=== PATIENT | female | born 1935 | race Caucasian/White ===

== ENCOUNTER 2020-03-13 11:59 | Inpatient (IN) | payer MEDICARE, OTHER ==
[~2020-03-13] VITALS: Ht 152.4 cm; Wt 63.5 kg
--- NOTE | 2020-03-13 12:00 | NUR ---
BIB SON FROM CLINIC,C/O DIFFICULTY BREATHING. vs checked, hooken on monitor. satting well on ra. iv access started blood draw done sent to lab/. seen by
[2020-03-13] MEDS ORDERED: ASPIRIN 81 MG TAB.CHEW ONE ×2 (12:16→12:17)
[2020-03-13 12:17] LABS: BASOPHILS # (AUTO) 0.2 /CMM (0.0-0.2); BASOPHILS % (AUTO) 1.4 % (0.0-2.0); EOSINOPHILS % (AUTO) 1.1 % (0.0-6.0); HEMATOCRIT 40 % (33-45); HEMOGLOBIN 12.7 g/dL (11.5-14.8); LYMPHOCYTES # (AUTO) 1.2 /CMM (0.8-4.8); LYMPHOCYTES % (AUTO) 9.5 % (20.0-44.0); MEAN CORPUSCULAR HGB CONC 32 g/dl (31.0-36.0); MEAN CORPUSCULAR VOLUME 86 fL (82-100); MONOCYTES # (AUTO) 0.5 /CMM (0.1-1.30); MONOCYTES % (AUTO) 3.8 % (2.0-12.0); NEUTROPHILS # (AUTO) 10.4 /CMM (1.8-8.9); NEUTROPHILS % (AUTO) 84.2 % (43.0-81.0); PLATELET COUNT (AUTO) 624 /CMM (150-450); RED BLOOD CELL COUNT(AUTO) 4.69 MIL/uL (4.0-5.2); WHITE BLOOD COUNT (AUTO) 12.4 K/uL (4.3-11.0)
[2020-03-13] MEDS ORDERED: ASPIRIN 81 MG TAB.CHEW PO ONE (12:30)
[2020-03-13 12:38] LABS: ALANINE AMINOTRANSFERASE 17 U/L (12-78); ALBUMIN 3.2 g/dL (3.4-5.0); ALKALINE PHOSPHATASE 71 U/L (46-116); ASPARTATE AMINOTRANSFERASE 19 U/L (15-37); BILIRUBIN,DIRECT 0.1 mg/dL (0.0-0.2); BILIRUBIN,TOTAL 0.5 mg/dL (0.2-1.0); CALCIUM, SERUM 9.6 mg/dL (8.5-10.1); CARBON DIOXIDE 20 mmol/L (21-32); CHLORIDE 106 mmol/L (98-107); CREATININE 1.4 mg/dL (0.6-1.3); POTASSIUM 4.8 mmol/L (3.5-5.1); SODIUM SERUM 137 mmol/L (136-145); TOTAL PROTEIN, SERUM 8.2 g/dL (6.4-8.2); UREA NITROGEN, BLOOD 42 mg/dL (7-18)
[2020-03-13 12:44] LABS: GLUCOSE 81 mg/dL (74-106)
[2020-03-13] MEDS ORDERED: LINA145C PO (12:50)
[2020-03-13] MEDS ORDERED: PANT40TA49 PO (12:50)
[2020-03-13] MEDS ORDERED: FURO40TA5 PO (12:51)
[2020-03-13] MEDS ORDERED: SIMV10TA98 PO (12:51)
[2020-03-13] MEDS ORDERED: BISA10SU11 RC (12:51)
[2020-03-13] MEDS ORDERED: DONE10TA44 PO (12:51)
[2020-03-13] MEDS ORDERED: HYDR-3980 PO (12:51)
[2020-03-13] MEDS ORDERED: MEMA5TAB42 PO (12:51)
[2020-03-13] MEDS ORDERED: IBUP-1955 PO (12:51)
[2020-03-13] MEDS ORDERED: POTA8TAB3 PO (12:51)
[2020-03-13] MEDS ORDERED: METF-440 PO (12:52)
[2020-03-13] MEDS ORDERED: LOSA25TA27 PO (12:52)
[2020-03-13] MEDS ORDERED: AMLO-212 PO (12:52)
--- NOTE | 2020-03-13 12:52 | NUR ---
covid swab antigen collected sent to lab
[2020-03-13] MEDS ORDERED: CHOL100040 PO (12:53)
--- NOTE | 2020-03-13 13:58 | NUR ---
PT IS WHEELED TO RADIOLOGY FOR CTA.
[2020-03-13] MEDS ORDERED: IV NS 0.9% 250 ML IV ONE (13:59)
[2020-03-13] MEDS ORDERED: IOHEXOL-350 100 ML VIAL IV ONE (13:59)
[2020-03-13] MEDS ORDERED: CT SWABBABLE VALVE TRANS SET 1 EA INFUS.SET MC ONE (13:59)
--- NOTE | 2020-03-13 14:01 | NUR ---
[facility] EDUCATOR: KANDACE [phone]
[2020-03-13] MEDS: METOPROLOL TARTRATE INJ 5 MG/5 ML AMPUL IVP PRN ×2 (14:20→14:25)
[2020-03-13] MEDS ORDERED: NITROGLYCERIN 0.4 MG/TAB BOTTLE ONE (14:23)
[2020-03-13] MEDS ORDERED: METOPROLOL TARTRATE INJ 5 MG/5 ML AMPUL ONE (14:24)
[2020-03-13] MEDS ORDERED: NITROGLYCERIN 0.4 MG/TAB BOTTLE SL ONE (14:30)
--- NOTE | 2020-03-13 14:42 | NUR ---
Report given to OSEI Poon for gadiel. Patient is transported back to ER Rm 17 in stable condition.
--- NOTE | 2020-03-13 15:46 | NUR ---
call from admitting,insurance is going to tx her to [facility],waiting on bed
--- NOTE | 2020-03-13 20:38 | NUR ---
PER ADMITTING PT OK TO STAY DUE TO NO BED AVAILABILITY AT [facility] AT THIS TIME.
--- NOTE | 2020-03-13 21:00 | NUR ---
pt will be staying in [facility] no beds available. son at bedside aware. pt will be admitted to transition area pending tele bed
--- NOTE | 2020-03-13 21:30 | NUR ---
pt pending admit for cp/sob. pt negative covid per report. no fevers/chills/n/v/d, pt aaox2-3, periods of confusion,hx of dementia, not in any distress, pt sat 97%RA. pt ambulatory, vss. wctm
--- NOTE | 2020-03-13 22:10 | NUR ---
CONTACT INFO: MICHAEL [phone]
--- NOTE | 2020-03-14 01:00 | NUR ---
pt covid neg. pt transferred to bed 13
--- NOTE | 2020-03-14 01:30 | NUR ---
pt ambualtory with assist. pt with sitter. pt walking with steady gait
[2020-03-14] MEDS ORDERED: DEXTROSE 50%-WATER 50 ML DISP.SYRIN IV PRN (03:00)
[2020-03-14] MEDS ORDERED: *INSULIN REGULAR(HUMULIN R)HUM 100 UNIT/ML VIAL SQ PRN (03:00)
[2020-03-14 05:35] LABS: BASOPHILS # (AUTO) 0.2 /CMM (0.0-0.2); BASOPHILS % (AUTO) 1.4 % (0.0-2.0); HEMATOCRIT 34 % (33-45); HEMOGLOBIN 10.8 g/dL (11.5-14.8); LYMPHOCYTES # (AUTO) 1.3 /CMM (0.8-4.8); LYMPHOCYTES % (AUTO) 11.7 % (20.0-44.0); MEAN CORPUSCULAR HGB CONC 32 g/dl (31.0-36.0); MEAN CORPUSCULAR VOLUME 85 fL (82-100); MONOCYTES # (AUTO) 0.7 /CMM (0.1-1.30); MONOCYTES % (AUTO) 6.6 % (2.0-12.0); NEUTROPHILS # (AUTO) 8.5 /CMM (1.8-8.9); NEUTROPHILS % (AUTO) 78.3 % (43.0-81.0); PLATELET COUNT (AUTO) 528 /CMM (150-450); WHITE BLOOD COUNT (AUTO) 10.9 K/uL (4.3-11.0)
[2020-03-14 05:46] LABS: CALCIUM, SERUM 8.8 mg/dL (8.5-10.1); CREATININE 1.1 mg/dL (0.6-1.3); POTASSIUM 4.8 mmol/L (3.5-5.1)
[2020-03-14 06:09] LABS: THYROID STIMULATING HORMONE 0.719 uIU/mL (0.358-3.74)
--- NOTE | 2020-03-14 07:30 | NUR ---
Patient in bed, awake, in no distress. Connected to the monitor and pulse ox. kept comfortable, will continue to monitor accordingly.
[2020-03-14] MEDS ORDERED: PANTOPRAZOLE 40 MG TABLET.DR PO ONE (07:54)
[2020-03-14] MEDS ORDERED: IBUPROFEN 600 MG TABLET PO PRN (08:00)
[2020-03-14] MEDS ORDERED: HYDROCODONE/APAP 10/325MG TABLET PO PRN (08:00)
[2020-03-14] MEDS ORDERED: BISACODYL SUPP (10 MG) 10 MG/SUPP.RECT SUPP.RECT RC PRN (08:00)
[2020-03-14] MEDS ORDERED: METOPROLOL SUCCINATE 25 MG TAB.SR.24H PO SCH (08:00)
[2020-03-14] MEDS: BLOOD SUGAR DIAGNOSTIC 1 EACH STRIP VI SCH ×4 (08:04→21:33)
[2020-03-14] MEDS: PANTOPRAZOLE 40 MG TABLET.DR PO SCH (08:06)
[2020-03-14] MEDS ORDERED: FUROSEMIDE 40 MG TABLET PO SCH (09:00)
[2020-03-14] MEDS ORDERED: LOSARTAN POTASSIUM 25 MG TABLET PO SCH (09:00)
[2020-03-14] MEDS ORDERED: FUROSEMIDE 40 MG/4 ML VIAL IV SCH (09:00)
[2020-03-14] MEDS ORDERED: ENOXAPARIN SODIUM 40 MG/0.4 ML DISP.SYRIN SQ ONE (09:32)
[2020-03-14] MEDS ORDERED: AMLODIPINE BESYLATE 5 MG TABLET ONE (09:33)
[2020-03-14] MEDS ORDERED: LOSARTAN POTASSIUM 25 MG TABLET ONE (09:33)
[2020-03-14] MEDS ORDERED: FUROSEMIDE 40 MG/4 ML VIAL ONE (09:38)
[2020-03-14] MEDS: ENOXAPARIN SODIUM 40 MG/0.4 ML DISP.SYRIN SQ SCH (09:40)
[2020-03-14] MEDS ORDERED: POTASSIUM CHLORIDE 10 MEQ TABLET.SA PO SCH (09:42)
[2020-03-14] MEDS: MEMANTINE HCL 5 MG TABLET PO SCH ×2 (09:46→18:29)
[2020-03-14] MEDS: DONEPEZIL 5 MG TABLET PO SCH (09:46)
[2020-03-14] MEDS: AMLODIPINE BESYLATE 5 MG TABLET PO SCH (09:47)
[2020-03-14] MEDS: CHOLECALCIFEROL 1,000 UNIT TABLET (VIT D3) PO SCH (09:47)
--- NOTE | 2020-03-14 12:21 | NUR ---
BG 96.
[2020-03-14] MEDS ORDERED: ATORVASTATIN 10 MG TABLET PO SCH (12:30)
[2020-03-14] MEDS ORDERED: VALSARTAN 80 MG TABLET PO SCH (12:30)
[2020-03-14] MEDS ORDERED: VALSARTAN 80 MG TABLET ONE (12:42)
[2020-03-14 13:35] LABS: IRON, SERUM 40 ug/dl (50-175); TOTAL IRON BINDING CAPACITY 210 ug/dl (250-450)
[2020-03-14 13:48] LABS: FERRITIN 54 ng/mL (8-388)
--- NOTE | 2020-03-14 15:14 | NUR ---
bedside report given by Diego FRANZ.
--- NOTE | 2020-03-14 15:30 | NUR ---
ELDERLY FE PT. ADM. TO RM. 327-1.VERY CONFUSED,BUT PLEASANT. HOOKED UP TO TELE MONITOR.HRATE 110-RHYTHM STACH.COOPERATIVE.MED COMPLIANT.AND STEADY ON FEET.HAS MULTIPLE BRUISES OVER BODY. REFUSING PHOTOS.EATING SNACKS,BUT RELUCTANT TO EAT DINNER MEAL.APPEARS TO BE PAIN FREE.
[2020-03-14 16:00] VITALS: BP 145/67
[2020-03-14] MEDS: SIMVASTATIN 10 MG TABLET PO SCH (18:29)
--- NOTE | 2020-03-14 19:10 | NUR ---
RN NOTE Patient Received. Patient is noted awake and walking around unit noted to be confused. Patient is noted ambulatory with cane. Gait noted to be steady. Patient is breathing even and non labored with no signs of acute distress noted or shortness or breath. patient remains on room air. IV site is noted to RAC 20G noted to be patent and intact. All needs attended to promptly. Will continue plan of care as ordered.
[2020-03-14 20:00] VITALS: BP 113/60
[2020-03-15 02:30] VITALS: BP 156/80
[2020-03-15] MEDS: LORAZEPAM INJ 2 MG/ML VIAL IV PRN ×2 (02:45→10:48)
[2020-03-15] MEDS ORDERED: ACETAMINOPHEN 325 MG TABLET PO PRN (03:00)
[2020-03-15 04:00] VITALS: BP 144/72
[2020-03-15] MEDS: BLOOD SUGAR DIAGNOSTIC 1 EACH STRIP VI SCH ×4 (06:37→21:37)
--- NOTE | 2020-03-15 07:05 | NUR ---
RN NOTE Patient is in bed, sleeping but easily abusable to verbal stimuli. Breathing even and non labored currently on 2L via NC. No acute distress or shortness of breath noted. IV site is noted to RAC 20G noted to be patent and intact. Safety precautions in place with bed in lowest position and locked. All needs attended to promptly. Call light within reach. Will endorse to continue plan of care as ordered.
[2020-03-15 07:11] LABS: BASOPHILS # (AUTO) 0.2 /CMM (0.0-0.2); BASOPHILS % (AUTO) 1.4 % (0.0-2.0); MEAN CORPUSCULAR HGB CONC 31 g/dl (31.0-36.0); MONOCYTES # (AUTO) 0.9 /CMM (0.1-1.30); WHITE BLOOD COUNT (AUTO) 12.5 K/uL (4.3-11.0)
[2020-03-15 07:22] LABS: CALCIUM, SERUM 8.8 mg/dL (8.5-10.1); CARBON DIOXIDE 19 mmol/L (21-32); CHLORIDE 104 mmol/L (98-107); CREATININE 1.9 mg/dL (0.6-1.3); GLUCOSE 101 mg/dL (74-106); POTASSIUM 5.1 mmol/L (3.5-5.1); SODIUM SERUM 136 mmol/L (136-145); UREA NITROGEN, BLOOD 43 mg/dL (7-18)
--- NOTE | 2020-03-15 07:40 | NUR ---
TELE/RN OPENING NOTES RECEIVED PT IN BED. NO SOB NOTED. IN NO APPARENT DISTRESS. BREATHING EVEN AND UNLABORED. R AC #20 G SL. PROVIDED SAFETY MEASURES. BED IN LOWEST POSITION, LOCKED. SIDE RAILS UP X2. CALL LIGHT WITHIN REACH. WILL CONTINUE PLAN OF CARE.
[2020-03-15 08:46] VITALS: BP 154/78
[2020-03-15] MEDS: PANTOPRAZOLE 40 MG TABLET.DR PO SCH (09:23)
[2020-03-15] MEDS: MEMANTINE HCL 5 MG TABLET PO SCH ×2 (09:24→17:57)
[2020-03-15] MEDS: CHOLECALCIFEROL 1,000 UNIT TABLET (VIT D3) PO SCH (09:24)
[2020-03-15] MEDS: DONEPEZIL 5 MG TABLET PO SCH (09:25)
[2020-03-15] MEDS: AMLODIPINE BESYLATE 5 MG TABLET PO SCH ×2 (09:25→09:28)
[2020-03-15] MEDS: ENOXAPARIN SODIUM 40 MG/0.4 ML DISP.SYRIN SQ SCH (09:29)
[2020-03-15] MEDS ORDERED: IV 1/2NS 1000 ML 1,000 ML IV PRN (10:00)
[2020-03-15 10:21] LABS: EOSINOPHILS % (AUTO) 0.5 % (0.0-6.0); HEMATOCRIT 37 % (33-45); HEMOGLOBIN 11.4 g/dL (11.5-14.8); LYMPHOCYTES # (AUTO) 1.4 /CMM (0.8-4.8); LYMPHOCYTES % (AUTO) 10.9 % (20.0-44.0); MEAN CORPUSCULAR VOLUME 88 fL (82-100); MONOCYTES % (AUTO) 7.2 % (2.0-12.0); PLATELET COUNT (AUTO) 556 /CMM (150-450); RED BLOOD CELL COUNT(AUTO) 4.17 MIL/uL (4.0-5.2)
--- NOTE | 2020-03-15 10:49 | NUR ---
TELE/RN NOTES PT KEEPS ON GETTING OUT OF BED. CONFUSED. PLACED IN A ROBERT CHAIR. ATIVAN PRN GIVEN.
[2020-03-15 12:00] VITALS: BP 128/65
[2020-03-15] MEDS: INSULIN REGULAR, HUMAN 100 UNIT/ML 3 ML VIAL SQ PRN (12:52)
[2020-03-15] MEDS: Linaclotide (Linzess) 145 MCG) PO SCH (14:56)
[2020-03-15 16:07] VITALS: BP 125/70
[2020-03-15] MEDS: SIMVASTATIN 10 MG TABLET PO SCH (17:59)
--- NOTE | 2020-03-15 18:48 | NUR ---
TELE/RN CLOSING NOTES PT IN A ROBERT CHAIR. A/O X1. NO SOB NOTED. IN NO APPARENT DISTRESS. BREATHING EVEN AND UNLABORED. R AC #20 G SL. ROUTINE MEDS WERE GIVEN. PROVIDED SAFETY MEASURES. ROBERT CHAIR, BREAKS LOCKED. WILL ENDORSE TO NIGHT FOR JAVIER.
--- NOTE | 2020-03-15 20:00 | NUR ---
TELE/RN OPENING NOTES RECEIVED PT IN BED. NO ACUTE DISTRESS NOTED, NO SOB NOTED. IN NO APPARENT DISTRESS. BREATHING EVEN AND UNLABORED. R AC #20 G SL. PROVIDED SAFETY MEASURES. BED IN LOWEST POSITION, LOCKED. SIDE RAILS UP X2. CALL LIGHT WITHIN REACH. WILL CONTINUE PLAN OF CARE
[2020-03-15 21:00] VITALS: BP 135/80
[2020-03-16 04:00] VITALS: BP 123/75
[2020-03-16] MEDS: BLOOD SUGAR DIAGNOSTIC 1 EACH STRIP VI SCH ×2 (07:03→12:00)
--- NOTE | 2020-03-16 07:08 | NUR ---
TELE/RN CLOSING NOTES PT. RESTING IN GERIC[place]IR. NO SOB NOTED. IN NO APPARENT DISTRESS. BREATHING EVEN AND UNLABORED. R AC #20 G SL. ROUTINE MEDS WERE GIVEN. PROVIDED SAFETY MEASURES. WILL ENDORSE TO AM NURSE FOR CONTINUITY OF CARE..
--- NOTE | 2020-03-16 07:51 | NUR ---
RN OPENING NOTE RECEIVED PATIENT RESTING IN MORGAN CHAIR. AWAKE, ALERT AND ORIENTED X 1. PATIENT IS ON ROOM AIR WITH NO S/S RESPIRATORY DISTRESS NOTED. IV # 20G TO RIGHT AC INTACT AND PATENT. ASPIRATION, FALL AND SAFETY PRECAUTIONS MAINTAINED.
[2020-03-16] MEDS ORDERED: METOPROLOL SUCCINATE 25 MG TAB.SR.24H PO SCH (08:00)
[2020-03-16 08:21] LABS: CALCIUM, SERUM 9.1 mg/dL (8.5-10.1); CARBON DIOXIDE 15 mmol/L (21-32); CHLORIDE 103 mmol/L (98-107); CREATININE 2.2 mg/dL (0.6-1.3); GLUCOSE 217 mg/dL (74-106); POTASSIUM 4.6 mmol/L (3.5-5.1); SODIUM SERUM 135 mmol/L (136-145); UREA NITROGEN, BLOOD 47 mg/dL (7-18)
[2020-03-16] MEDS: AMLODIPINE BESYLATE 5 MG TABLET PO SCH ×2 (08:47)
[2020-03-16] MEDS: MEMANTINE HCL 5 MG TABLET PO SCH (08:48)
[2020-03-16] MEDS: CHOLECALCIFEROL 1,000 UNIT TABLET (VIT D3) PO SCH (08:48)
[2020-03-16] MEDS: DONEPEZIL 5 MG TABLET PO SCH (08:48)
[2020-03-16] MEDS: PANTOPRAZOLE 40 MG TABLET.DR PO SCH (08:48)
[2020-03-16] MEDS: ENOXAPARIN SODIUM 40 MG/0.4 ML DISP.SYRIN SQ SCH (08:53)
[2020-03-16] MEDS ORDERED: ISOS30TA6 PO (09:12)
[2020-03-16] MEDS ORDERED: ASPI-1420 PO (09:12)
[2020-03-16] MEDS ORDERED: SITA50TA PO (09:12)
[2020-03-16] MEDS ORDERED: LINAGLIPTIN 5 MG TABLET PO SCH (09:24)
[2020-03-16] MEDS ORDERED: ISOSORBIDE MONONITRATE (30MG) 30 MG TAB.SR.24H PO SCH (09:30)
[2020-03-16] MEDS ORDERED: SITAGLIPTIN PHOSPHATE 50 MG TABLET PO SCH (09:30)
[2020-03-16] MEDS ORDERED: ASPIRIN EC 81 MG TABLET.DR PO SCH (09:30)
[2020-03-16 10:35] VITALS: BP 135/76
[2020-03-16] MEDS: Linaclotide (Linzess) 145 MCG) PO SCH (11:12)
[2020-03-16] MEDS: INSULIN REGULAR, HUMAN 100 UNIT/ML 3 ML VIAL SQ PRN (12:00)
--- NOTE | 2020-03-16 13:00 | NUR ---
ASSISTANT AUDITOR NOTE PATIENT MEDICALLY CLEARED FOR DISCHARGE BY DR. MAGALLANES. INFORMED UNABLE TO DO PULMONARY PERFUSION SCAN. PER DR. SONA SOTELO AND OKAY TO BE DISCHARGE. Addendum: 03/16/20 at 1508 by PLACIDO SINGH RN OSEI NOTE PATIENT MEDICALLY CLEARED FOR DISCHARGE BY DR. MAGALLANES. INFORMED UNABLE TO DO PULMONARY PERFUSION SCAN. PER DR. SONA SOTELO AND OKEDISON TO BE DISCHARGE. Addendum: 03/16/20 at 1757 by PLACIDO SINGH RN OSEI NOTE PATIENT MEDICALLY CLEARED FOR DISCHARGE BY DR. MAGALLANES. INFORMED UNABLE TO DO PULMONARY PERFUSION SCAN, PATIENT REFUSED WITH NUCLEAR MED RYNE. PER DR. SONA SOTELO AND OKAY TO BE DISCHARGE.
--- NOTE | 2020-03-16 15:08 | NUR ---
FARM EQUIPMENT MECHANIC NOTE PATIENT MEDICALLY CLEARED FOR DISCHARGE. PATIENT IN NO ACUTE DISTRESS. NO SOB NOTED. PATIENT BREATHING IS EVEN AND UNLABORED. DC INSTRUCTIONS PROVIDED TO SON. PATIENT UNABLE TO COMPREHEND. INFORMED SON OF [facility] WILL BE IN CONTACT WITH SON. PATIENT SON VERBALIZED UNDERSTANDING. PATIENT IV REMOVED. ID BAND REMOVED. PATIENT BELONGINGS GONE OVER WITH TWO NURSES. PATIENT WITH BELONGINGS. PATIENT KEPT CLEAN, DRY, AND COMFORTABLE THROUGHOUT SHIFT. PATIENT REFUSED SKIN ASSESSMENT. EDUCATED RISKS VS BENEFITS. PATIENT CONTINUED TO REFUSE. PATIENT NEEDS AND CONCERNS ADDRESSED. PATIENT PICKED UP BY SON GOING BACK HOME. MD AWARE OF DISCHARGE.
[2020-03-17] MEDS ORDERED: METOPROLOL SUCCINATE 25 MG TAB.SR.24H PO SCH (08:00)
[2020-03-17] MEDS ORDERED: LINAGLIPTIN 5 MG TABLET PO SCH (09:00)
== END 2020-03-16 15:10 | disposition home or self-care (01) | DRG 302 ==
LOC: ER 12:01 → TRANSITION 17:57 → TELE 03-14 14:47
PROVIDERS: ADMIT Internal Medicine; ATTEND Internal Medicine
DX: I25.119 Atherosclerotic heart disease of native coronary artery with unspecified angina pectoris (principal); I50.31 Acute diastolic (congestive) heart failure; N17.0 Acute kidney failure with tubular necrosis; I13.0 Hypertensive heart and chronic kidney disease with heart failure and stage 1 through stage 4 chronic kidney disease, or unspecified chronic kidney disease; Z79.84 Long term (current) use of oral hypoglycemic drugs; E78.5 Hyperlipidemia, unspecified; I27.20 Pulmonary hypertension, unspecified; F03.90 Unspecified dementia, unspecified severity, without behavioral disturbance, psychotic disturbance, mood disturbance, and anxiety; E11.22 Type 2 diabetes mellitus with diabetic chronic kidney disease; N18.9 Chronic kidney disease, unspecified; D64.9 Anemia, unspecified; I35.0 Nonrheumatic aortic (valve) stenosis
CPT/HCPCS: 36415; 71045-TC; 75574; 76770-TC; 80048-TC; 80061-TC; 80076-TC; 82728-TC; 82962-TC; 83540-TC; 84443-TC; 84484-TC; 85025-TC; 87081-TC; 93307-TC; 93970-TC; 97116-TC; 97530-TC; C9803; G0378; J1650; J1815; J1940; J2060; J3490; J7050; Q9967

== ENCOUNTER 2020-11-10 11:55 | Emergency (ER) | payer OTHER ==
[~2020-11-10] VITALS: Ht 152.4 cm; Wt 66.2 kg
[~2020-11-10 11:55] MED LIST: AMLO-212 PO; ASPI-1420 PO; BISA10SU11 RC; CHOL100040 PO; DONE10TA44 PO; HYDR-3980 PO; ISOS30TA86 PO; LINA145C PO; MEMA5TAB42 PO; PANT40TA49 PO; SIMV10TA98 PO; SITA50TA PO
--- NOTE | 2020-11-10 12:22 | NUR ---
LG, SENT BY PMD FOR HD CATH REMOVAL. THE PATIENT`S HD CATH IS ON RIGHT UPPER CHEST WALL. THE PATIENT DENIES PAIN. IN ROOM AIR AND DENIES SOB. RESPIRATION REGULAR AND UNLABORED. ATTACHED TO THE MONITOR. WARM BLANKET PROVIDED FOR COMFORT. WILL CONTINUE TO MONITOR THE PATIENT.
--- NOTE | 2020-11-10 12:33 | NUR ---
CALLED DR. HEATON [phone] RUIZ.
[2020-11-10 13:22] LABS: BASOPHILS # (AUTO) 0.1 K/uL (0.0-0.2); BASOPHILS % (AUTO) 0.8 % (0.0-2.0); EOSINOPHILS % (AUTO) 0.5 % (0.0-6.0); HEMATOCRIT 37 % (33-45); LYMPHOCYTES # (AUTO) 1.3 K/uL (0.8-4.8); LYMPHOCYTES % (AUTO) 11.5 % (20.0-44.0); MEAN CORPUSCULAR HGB CONC 33 g/dl (31.0-36.0); MEAN CORPUSCULAR VOLUME 89 fL (82-100); MONOCYTES # (AUTO) 0.5 K/uL (0.1-1.30); MONOCYTES % (AUTO) 4.3 % (2.0-12.0); NEUTROPHILS # (AUTO) 9.1 K/uL (1.8-8.9); NEUTROPHILS % (AUTO) 82.9 % (43.0-81.0); PLATELET COUNT (AUTO) 288 K/uL (150-450); RED BLOOD CELL COUNT(AUTO) 4.14 MIL/uL (4.0-5.2)
[2020-11-10 13:33] LABS: CALCIUM, SERUM 8.9 mg/dL (8.5-10.1); CARBON DIOXIDE 21 mmol/L (21-32); CHLORIDE 107 mmol/L (98-107); CREATININE 1.5 mg/dL (0.6-1.3); GLUCOSE 92 mg/dL (74-106); POTASSIUM 4.7 mmol/L (3.5-5.1); SODIUM SERUM 140 mmol/L (136-145); UREA NITROGEN, BLOOD 72 mg/dL (7-18)
--- NOTE | 2020-11-10 13:35 | NUR ---
CALLED OFFICE OF DR ANYA MD PAGED
[2020-11-10] MEDS ORDERED: PIOG30TA10 PO (13:43)
[2020-11-10] MEDS ORDERED: METO5TAB7 PO (13:43)
[2020-11-10] MEDS ORDERED: FAMO40TA7 PO (13:43)
[2020-11-10] MEDS ORDERED: FURO-144 PO (13:43)
[2020-11-10] MEDS ORDERED: DOCU-141 PO (13:43)
[2020-11-10] MEDS ORDERED: LOSA25TA27 PO (13:43)
[2020-11-10] MEDS ORDERED: METO50TA16 PO (13:43)
[2020-11-10] MEDS ORDERED: LIDOCAINE 2%-EPI 1:100,000 30 ML VIAL ONE (15:52)
--- NOTE | 2020-11-10 17:15 | NUR ---
DR THORNES JONH HERNANDEZ IS AT THE BEDSIDE FOR HD CATH REMOVAL.
--- NOTE | 2020-11-10 17:37 | NUR ---
Right upper chest hd cath taken out by JONH Cueto. No bleeding noted. No discharge or any s/s infection noted. Will continue to monitor the patient.
--- NOTE | 2020-11-10 19:15 | NUR ---
Patient discharged to home in stable condition left with son. Written and verbal after care instructions given. Patient and the son verbalize understanding of instruction.
[2020-11-10 19:16] VITALS: BP 126/82
== END 2020-11-10 19:16 | disposition home or self-care (01) ==
LOC: ER 12:21
DX: Z49.01 Encounter for fitting and adjustment of extracorporeal dialysis catheter (principal); E78.00 Pure hypercholesterolemia, unspecified; I10 Essential (primary) hypertension; E11.9 Type 2 diabetes mellitus without complications; Z96.653 Presence of artificial knee joint, bilateral; Z79.899 Other long term (current) drug therapy; Z79.82 Long term (current) use of aspirin
CPT/HCPCS: 36415; 71045; 80048; 85025; 85610; 99284; A6403; J3490